=== PATIENT | male | born 1965 | race Caucasian/White ===

== ENCOUNTER 2021-12-18 12:43 | Outpatient (CLI) | payer BC | END 2021-12-18 12:44 | disposition home or self-care (01) | LOC: TBSIIMAG 12:43 | PROVIDERS: ATTEND Neurological Surgery | DX: M54.16 Radiculopathy, lumbar region (principal); M48.061 Spinal stenosis, lumbar region without neurogenic claudication; M46.56 Other infective spondylopathies, lumbar region; M46.26 Osteomyelitis of vertebra, lumbar region; R60.9 Edema, unspecified | CPT/HCPCS: 72148 ==

== ENCOUNTER 2022-02-10 08:50 | Outpatient (CLI) | payer BC | END 2022-02-10 08:51 | disposition home or self-care (01) | LOC: TBSIIMAG 08:50 | PROVIDERS: ATTEND Neurological Surgery | DX: M43.16 Spondylolisthesis, lumbar region (principal); Z98.890 Other specified postprocedural states | CPT/HCPCS: 72100 ==

== ENCOUNTER 2022-03-31 13:42 | Outpatient (CLI) | payer BC | END 2022-03-31 13:43 | disposition home or self-care (01) | LOC: TBSIIMAG 13:42 | PROVIDERS: ATTEND Neurological Surgery | DX: M43.16 Spondylolisthesis, lumbar region (principal); M47.816 Spondylosis without myelopathy or radiculopathy, lumbar region; Z98.890 Other specified postprocedural states | CPT/HCPCS: 72100 ==